=== PATIENT | female | born 1965 | race Caucasian/White ===

== ENCOUNTER 2019-01-27 12:15 | Outpatient (CLI) | payer MEDICARE ==
--- NOTE | 2019-01-27 14:13 | RAD ---
KUB: Date: 01/27/19 INDICATION: MR safety evaluation; history of bladder stimulator leads reportedly removed. FINDINGS: Bowel gas pattern is unobstructed. No suspicious retained metallic foreign density is seen within the region of the pelvis. There are scattered phleboliths. No acute osseous abnormality is evident. IMPRESSION: No retained stimulator lead demonstrated within the pelvis. POS: [facility]
--- NOTE | 2019-01-27 14:24 | MRI ---
Exam: Left wrist MRI without IV contrast: HISTORY: Left wrist pain on and off prior carpal tunnel surgery cyst drain. FINDINGS: There is a very slightly lobulated mildly septated 0.4 x 0.9 cm cyst on the dorsal aspect of the wris t overlying the extensor retinaculum at the level of the inferior capitate bone. There are several small intraosseous cysts within the capitate. There is some minimal fluid within multiple tendon griffiths ths including the extensor pollicis longus, extensor carpi radialis longus, and the second extensor digitorum longus tendons evidence for minimal tenosynovitis. No evidence for abnormal marrow signal. The scapholunate ligament region appears unremarkable. Triangular fibrocartilage complex is unremarkable, although there is some minimal fluid in the distal radial ulnar joint. IMPRESSION: Small ganglion cyst noted dorsally overlying the extensor retinaculum at approximately the level of t he proximal capitate bone. 2 small intraosseous cysts in the capitate bone. Small amount of fluid in several tendon sheaths as above evidence for minimal tenosynovitis.
== END 2019-01-27 12:16 | disposition home or self-care (01) ==
LOC: BICMRI 12:15
PROVIDERS: ATTEND Orthopaedic Surgery
DX: M25.532 Pain in left wrist (principal); M67.432 Ganglion, left wrist; M25.832 Other specified joint disorders, left wrist; M65.832 Other synovitis and tenosynovitis, left forearm
CPT/HCPCS: 74018

== ENCOUNTER 2020-02-23 09:41 | Outpatient (CLI) | payer MEDICARE ==
--- NOTE | 2020-02-23 10:09 | BD ---
EXAM: DEXA bone density examination HISTORY: 54-year-old postmenopausal female for screening COMPARISON: None FINDINGS: L1--bone mineral density 0.924 g/sq cm; T score -0.6 L2--bone mineral density 0.950 g/sq cm; T score -0.7 L3--bone mineral density 0.970 g/sq cm; T score -1.0 L4--bone mineral density 0.927 g/sq cm; T score -1.2 Total L1-L4--bone mineral density 0.943 g/sq cm; T score -0.9 Left femoral neck--bone mineral density0.663; T score -1.7 Total proximal left femur--bone mineral density 0.899; T score -0.3 IMPRESSION: Osteopenia. This patient has a 10 year WHO fracture risk of a major osteoporotic fracture of 6.6% and of a hip fracture of 0.6%.
--- NOTE | 2020-02-23 10:41 | MMO ---
Bilateral MAMMO Bilat Screen [facility]. CLINICAL HISTORY: Patient is 54 years old and is seen for screening. The patient has the following family history of breast cancer: mother, at age 43. VIEWS: The views performed were: bilateral craniocaudal with tomosynthesis and bilateral mediolateral oblique with tomosynthesis. FILMS COMPARED: The present examination has been compared to prior imaging studies performed at [facility] on 01/12/2019, and at [facility] on 10/21/2017. This study has been interpreted with the assistance of computer-aided detection. MAMMOGRAM FINDINGS: The breasts are heterogeneously dense, which could obscure a lesion on mammography. There are no suspicious masses, suspicious calcifications, or new areas of architectural distortion. IMPRESSION: THERE IS NO MAMMOGRAPHIC EVIDENCE OF MALIGNANCY. A ROUTINE FOLLOW-UP MAMMOGRAM IN 1 YEAR IS RECOMMENDED. THE RESULTS OF THIS EXAM WERE SENT TO THE PATIENT. ACR BI-RADS Category 1 - Negative MAMMOGRAPHY NOTE: 1. A negative mammogram report should not delay a biopsy if a dominant of clinically suspicious mass is present. 2. Approximately 10% to 15% of breast cancers are not detected by mammography. 3. Adenosis and dense breasts may obscure an underlying neoplasm. Reported by: ISMA DÍAZ MD Electonically Signed: [id number]
== END 2020-02-23 09:42 | disposition home or self-care (01) ==
LOC: BICMAMMO 09:41
PROVIDERS: ATTEND Family Medicine
DX: Z12.31 Encounter for screening mammogram for malignant neoplasm of breast (principal); N95.9 Unspecified menopausal and perimenopausal disorder; M85.89 Other specified disorders of bone density and structure, multiple sites; Z80.3 Family history of malignant neoplasm of breast
CPT/HCPCS: 77063; 77067; 77080

== ENCOUNTER 2021-03-10 12:53 | Outpatient (CLI) | payer MEDICARE | END 2021-03-10 12:54 | disposition home or self-care (01) | LOC: BICMAMMO 12:53 | PROVIDERS: ATTEND Family Medicine | DX: Z12.31 Encounter for screening mammogram for malignant neoplasm of breast (principal); Z80.3 Family history of malignant neoplasm of breast | CPT/HCPCS: 77063; 77067 ==